=== PATIENT | female | born 1970 | race Caucasian/White ===

== ENCOUNTER 2018-09-04 17:56 | Emergency (ER) | payer MEDICAID ==
[~2018-09-04] VITALS: Ht 157.5 cm; Wt 82.3 kg
[~2018-09-04 17:56] MED LIST: HYDR-3240; UNK ABX
[2018-09-04 18:42] LABS: ALBUMIN 2.6 g/dL (3.4-5.0); ANION GAP 10 mmol/L (5-15); CALCIUM 8.2 mg/dL (8.5-10.1); CHLORIDE 112 mmol/L (98-107)
[2018-09-04 18:46] LABS: ALANINE AMINOTRANSFERASE 29 U/L (12-78); ALKALINE PHOSPHATASE 165 U/L (45-117); BILIRUBIN,TOTAL 9.6 mg/dL (0.2-1.0); CREATININE 0.69 mg/dL (0.55-1.02); TOTAL PROTEIN 6.8 g/dL (6.4-8.2)
[2018-09-04 19:01] LABS: MEAN CORPUSCULAR HGB CONC 34.4 g/dL (32.4-35.8); MEAN PLATELET VOLUME 8.5 fL (7.4-10.4); PLATELET COUNT 57 x10^3/uL (130-400); RED BLOOD COUNT 3.25 x10^6/uL (3.82-5.3); RED CELL DISTRIBUTION WIDTH 15.1 % (9.6-15.2)
[2018-09-04 19:21] LABS: MD YES
[2018-09-04 19:23] LABS: BAND#(MANUAL) 0.06 x10^3/uL; BANDS%(MANUAL) 1 % (0-7); BASOS#(MANUAL) 0.06 x10^3/uL (0-0.1); BASOS% (MANUAL) 1 % (0-1); EOS#(MANUAL) 0.24 x10^3/uL (0.0-0.4); EOS% (MANUAL) 4 % (1-7); LYMPH#(MANUAL) 1.34 x10^3/uL (1-3.4); LYMPHS% (MANUAL) 22 % (22-44); MONOS#(MANUAL) 0.79 x10^3/uL (0.3-2.7); MONOS% (MANUAL) 13 % (2-9); SEGS% (MANUAL) 59 % (42-75)
[2018-09-04 19:24] LABS: <PLATELET ESTIMATE> DECREASED; ANISOCYTOSIS 1+; ECHINOCYTES 1+; POLYCHROMASIA 1+; TEAR DROPS 1+
[2018-09-04 19:25] LABS: <PLT MORPHOLOGY> NORMAL PLT MORPH
[2018-09-04 20:18] VITALS: BP 120/79
== END 2018-09-04 20:31 | disposition home or self-care (01) ==
LOC: ED 20:25
DX: L03.115 Cellulitis of right lower limb (principal)
CPT/HCPCS: 36415; 80053; 85025; 99285

== ENCOUNTER 2018-11-25 01:00 | Emergency (ER) | payer SELFPAY ==
[~2018-11-25] VITALS: Ht 160 cm; Wt 80.0 kg
[2018-11-25] MEDS ORDERED: LOSA25TA12 PO (01:11)
--- NOTE | 2018-11-25 01:22 | NUR ---
RECEIVED REPORT FROM KYLE DEVI TO ASSUME PT. CARE AT THIS TIME.
[2018-11-25] MEDS ORDERED: KETOROLAC 30 MG/1 ML IM ONE (01:30)
--- NOTE | 2018-11-25 01:33 | NUR ---
PT. OUT OF ROOM FOR CT.
--- NOTE | 2018-11-25 01:38 | NUR ---
JIGMAN BED PLACED IN ROOM/CART IN ROOM READY FOR PELVIC EXAM WHEN PT. RETURNS TO ROOM.
[2018-11-25 01:44] LABS: ALANINE AMINOTRANSFERASE 43 U/L (12-78); ALBUMIN 2.8 g/dL (3.4-5.0); ANION GAP 11 mmol/L (5-15); CALCIUM 7.8 mg/dL (8.5-10.1); CHLORIDE 110 mmol/L (98-107); CREATININE 0.71 mg/dL (0.55-1.02)
[2018-11-25 01:47] LABS: ALKALINE PHOSPHATASE 188 U/L (45-117); BILIRUBIN,TOTAL 9.8 mg/dL (0.2-1.0); TOTAL PROTEIN 7.1 g/dL (6.4-8.2)
--- NOTE | 2018-11-25 01:51 | NUR ---
PT. BACK FROM US; URINE SAMPLE SENT TO LAB. DR. SARMIENTO IN TO EVAL PT. EUGENIA LOZANO AWARE PELVIC IS READY. PT. DENIES NEEDS. CALL LIGHT IN REACH.
[2018-11-25 01:53] LABS: BASOPHILS # (AUTO) 0.07 x10^3/uL (0-0.1); BASOPHILS % (AUTO) 1 % (0-1); EOSINOPHILS # (AUTO) 0.13 x10^3/uL (0-0.4); EOSINOPHILS % (AUTO) 2 % (1-7); LYMPHOCYTES # (AUTO) 1.36 x10^3/uL (1-3.4); LYMPHOCYTES % (AUTO) 24 % (22-44); MD MORPH REVIEW ONLY; MEAN CORPUSCULAR HEMOGLOBIN 35.5 pg (27.0-34.8); MEAN CORPUSCULAR HGB CONC 34.8 g/dL (32.4-35.8); MEAN PLATELET VOLUME 9.8 fL (7.4-10.4); MONOCYTES # (AUTO) 0.73 x10^3/uL (0.2-0.8); MONOCYTES % (AUTO) 13 % (2-9); NEUTROPHILS # (AUTO) 3.35 x10^3/uL (1.8-6.8); NEUTROPHILS % (AUTO) 59 % (42-75); PLATELET COUNT 50 x10^3/uL (130-400); RED BLOOD COUNT 3.27 x10^6/uL (3.82-5.3); RED CELL DISTRIBUTION WIDTH 15.8 % (9.6-15.2)
[2018-11-25 01:54] LABS: ANISOCYTOSIS 1+; ECHINOCYTES 1+; OVALOCYTES 1+; POLYCHROMASIA 1+
[2018-11-25 01:55] LABS: ACANTHOCYTES 1+
[2018-11-25 01:56] LABS: <PLATELET ESTIMATE> DECREASED; <PLT MORPHOLOGY> NORMAL PLT MORPH
[2018-11-25] MEDS ORDERED: POTASSIUM CHLORIDE 20 MEQ TAB.ER.PRT PO ONE (02:30)
[2018-11-25 02:36] LABS: CLUE CELLS NONE SEEN (NONE SEEN)
[2018-11-25 02:37] LABS: WET PREP WBCS FEW (FEW)
[2018-11-25] MEDS ORDERED: KETOROLAC 30 MG/1 ML ONE (02:37)
[2018-11-25] MEDS ORDERED: POTASSIUM CHLORIDE 20 MEQ TAB.ER.PRT ONE (02:37)
[2018-11-25 02:38] LABS: CULTURE INDICATED? YES; HCG UR SG 1.004 (1.003-1.030); MICROSCOPIC INDICATED
[2018-11-25 02:43] VITALS: BP 137/83
== END 2018-11-25 03:16 | disposition home or self-care (01) ==
LOC: ED 01:21
DX: D25.9 Leiomyoma of uterus, unspecified (principal); E87.6 Hypokalemia; K70.30 Alcoholic cirrhosis of liver without ascites; I10 Essential (primary) hypertension
CPT/HCPCS: 36415; 76830; 80053; 81001; 81025; 82248; 83690; 85025; 87086; 87210; 87491; 87591; 87808; 96372; 99284; J1885

== ENCOUNTER 2018-12-08 13:04 | Observation (INO) | payer MEDICAID, OTHER ==
[~2018-12-08] VITALS: Ht 160 cm; Wt 82.7 kg
[~2018-12-08 13:04] MED LIST changes: +LOSA25TA12 PO
[2018-12-08 13:58] LABS: INTERNATIONAL NORMALIZED RATIO 2.21 (0.93-1.1); PROTHROMBIN TIME 22.7 Seconds (9.6-11.5)
[2018-12-08 13:59] LABS: ALANINE AMINOTRANSFERASE 33 U/L (12-78); ALBUMIN 2.8 g/dL (3.4-5.0); ANION GAP 8 mmol/L (5-15); CALCIUM 8.6 mg/dL (8.5-10.1); CHLORIDE 107 mmol/L (98-107)
[2018-12-08 14:03] LABS: ALKALINE PHOSPHATASE 245 U/L (45-117); BILIRUBIN,TOTAL 10.7 mg/dL (0.2-1.0); TOTAL PROTEIN 7.3 g/dL (6.4-8.2); TROPONIN I < 0.015 ng/mL (0.000-0.045)
[2018-12-08 14:15] LABS: MEAN CORPUSCULAR HEMOGLOBIN 36.7 pg (27.0-34.8); MEAN CORPUSCULAR HGB CONC 34.8 g/dL (32.4-35.8); MEAN CORPUSCULAR VOLUME 105.4 fL (80-100); RED BLOOD COUNT 3.01 x10^6/uL (3.82-5.3); RED CELL DISTRIBUTION WIDTH 14.9 % (9.6-15.2)
[2018-12-08 14:16] LABS: PLATELET COUNT 31 x10^3/uL (130-400)
[2018-12-08 14:24] LABS: BASOPHILS # (AUTO) 0.05 x10^3/uL (0-0.1); BASOPHILS % (AUTO) 1 % (0-1); EOSINOPHILS # (AUTO) 0.03 x10^3/uL (0-0.4); EOSINOPHILS % (AUTO) 1 % (1-7); LYMPHOCYTES # (AUTO) 0.76 x10^3/uL (1-3.4); LYMPHOCYTES % (AUTO) 20 % (22-44); MD SCAN; MONOCYTES % (AUTO) 13 % (2-9); NEUTROPHILS # (AUTO) 2.58 x10^3/uL (1.8-6.8); NEUTROPHILS % (AUTO) 66 % (42-75)
--- NOTE | 2018-12-08 16:50 | NUR ---
PT TO ROOM FROM LOBBY. ALL TESTS ORDERED IN TRIAGE COMPLETED AND POSTED. DR HOWELL AT BEDSIDE.
[2018-12-08] MEDS ORDERED: OXYcodone/APAP 5/325MG TABLET PO ONE (17:00)
[2018-12-08] MEDS ORDERED: OXYcodone/APAP 5/325MG TABLET ONE (17:22)
--- NOTE | 2018-12-08 17:46 | NUR ---
LATE ENTRY 6, PT WITH C/O RIGHT WRIST PAIN, DENIES TRAUMA. PAIN 8/10, NO OBVIOUS DEFORMITY NOTED, DISTAL CSM+
--- NOTE | 2018-12-08 17:47 | NUR ---
PT RTD FROM US AND XRAY. MED FOR PAIN 06/13 NOTED.
--- NOTE | 2018-12-08 18:32 | NUR ---
PT AWARE THAT HEMATOLOGY MD HAS BEEN CALLED FOR CONSULT.
[2018-12-08] MEDS ORDERED: PHYTONADIONE 10 MG/ML, 1ML IM ONE (19:00)
--- NOTE | 2018-12-08 19:01 | NUR ---
DR HOWELL AT BEDSIDE. POC FOR VIT K, PLATELETS, AND ADMISSION DISCUSSED, QUESTIONS ANSWERED.
[2018-12-08] MEDS ORDERED: PHYTONADIONE 10 MG/ML, 1ML ONE (19:15)
[2018-12-08 19:52] VITALS: BP 120/66
[2018-12-08] MEDS ORDERED: OXYcodone IR 5MG TABLET PO PRN (20:00)
[2018-12-08] MEDS ORDERED: ONDANSETRON 2MG/ML, 2ML IVPush PRN (20:00)
[2018-12-08 20:09] VITALS: BP 110/50
[2018-12-08 20:35] VITALS: BP 119/63
--- NOTE | 2018-12-08 21:06 | NUR ---
ANGELICA RPT TO KYLE MARQUIS
--- NOTE | 2018-12-08 21:43 | NUR ---
SWITCHED PT TO HOSPITAL BED
--- NOTE | 2018-12-08 21:50 | NUR ---
REPORT GIVEN TO KYLE DAHL
[2018-12-08 22:41] VITALS: BP 127/75
[2018-12-09 00:21] VITALS: BP 113/72
[2018-12-09 08:45] VITALS: BP 119/71
[2018-12-09] MEDS ORDERED: LOSARTAN 25MG TABLET PO SCH (09:00)
[2018-12-09 09:34] LABS: INTERNATIONAL NORMALIZED RATIO 2.52 (0.93-1.1); PROTHROMBIN TIME 25.8 Seconds (9.6-11.5)
[2018-12-09 09:41] LABS: MEAN CORPUSCULAR HEMOGLOBIN 36.1 pg (27.0-34.8); MEAN CORPUSCULAR HGB CONC 33.7 g/dL (32.4-35.8); RED BLOOD COUNT 2.56 x10^6/uL (3.82-5.3); RED CELL DISTRIBUTION WIDTH 14.6 % (9.6-15.2)
[2018-12-09 10:06] LABS: BASOPHILS # (AUTO) 0.06 x10^3/uL (0-0.1); BASOPHILS % (AUTO) 1 % (0-1); EOSINOPHILS # (AUTO) 0.05 x10^3/uL (0-0.4); EOSINOPHILS % (AUTO) 1 % (1-7); LYMPHOCYTES # (AUTO) 0.82 x10^3/uL (1-3.4); LYMPHOCYTES % (AUTO) 19 % (22-44); MD SCAN; MEAN PLATELET VOLUME 9.3 fL (7.4-10.4); MONOCYTES # (AUTO) 0.58 x10^3/uL (0.2-0.8); MONOCYTES % (AUTO) 13 % (2-9); NEUTROPHILS # (AUTO) 2.93 x10^3/uL (1.8-6.8); NEUTROPHILS % (AUTO) 66 % (42-75)
[2018-12-09 10:09] LABS: PLATELET COUNT 22 x10^3/uL (130-400)
[2018-12-09] MEDS ORDERED: PHYT5TAB PO (11:41)
[2018-12-09] MEDS ORDERED: TRAM50TA2 PO (11:41)
== END 2018-12-09 13:44 | disposition home or self-care (01) ==
LOC: ED 16:45 → INTOOBSV 19:20 → EDIP 19:20 → 3NE 22:00
PROVIDERS: ADMIT Hospitalist; ATTEND Hospitalist
DX: S50.11XA Contusion of right forearm, initial encounter (principal); F10.21 Alcohol dependence, in remission; D63.8 Anemia in other chronic diseases classified elsewhere; D68.9 Coagulation defect, unspecified; D69.59 Other secondary thrombocytopenia; D75.89 Other specified diseases of blood and blood-forming organs; E03.9 Hypothyroidism, unspecified; E43 Unspecified severe protein-calorie malnutrition; I10 Essential (primary) hypertension; K70.40 Alcoholic hepatic failure without coma; K74.60 Unspecified cirrhosis of liver; Z83.3 Family history of diabetes mellitus; Z87.891 Personal history of nicotine dependence; X58.XXXA Exposure to other specified factors, initial encounter; Y93.89 Activity, other specified; Y92.89 Other specified places as the place of occurrence of the external cause; Y99.8 Other external cause status
CPT/HCPCS: 36415; 71046; 73090; 80053; 83690; 83880; 84484; 85025; 85610; 86850; 86900; 93005; 93971; 96372; 99284; G0378; J3430; P9035

== ENCOUNTER 2018-12-12 02:53 | Emergency (ER) | payer SELFPAY ==
[~2018-12-12] VITALS: Ht 160 cm; Wt 80.0 kg
[~2018-12-12 02:53] MED LIST changes: +PHYT5TAB PO; +TRAM50TA2 PO
--- NOTE | 2018-12-12 03:30 | NUR ---
PT HERE FOR BRUISING TO RIGHT ARM. PT SEEN ANTONIO RECENTLY FOR SAME. PT DENIES PAIN. VSS. CALL LIGHT N REACH
[2018-12-12 03:40] LABS: INTERNATIONAL NORMALIZED RATIO 1.89 (0.93-1.1); PROTHROMBIN TIME 19.5 Seconds (9.6-11.5)
[2018-12-12 03:42] LABS: ALANINE AMINOTRANSFERASE 33 U/L (12-78); ALBUMIN 2.8 g/dL (3.4-5.0); ANION GAP 11 mmol/L (5-15); CALCIUM 8.2 mg/dL (8.5-10.1); CHLORIDE 105 mmol/L (98-107); CREATININE 1.24 mg/dL (0.55-1.02)
[2018-12-12 03:45] LABS: ALKALINE PHOSPHATASE 186 U/L (45-117); BILIRUBIN,TOTAL 10.4 mg/dL (0.2-1.0); TOTAL PROTEIN 7.2 g/dL (6.4-8.2)
[2018-12-12] MEDS ORDERED: POTASSIUM CHLORIDE 20 MEQ TAB.ER.PRT ONE (04:10)
[2018-12-12 04:16] LABS: MEAN CORPUSCULAR HEMOGLOBIN 37.1 pg (27.0-34.8); MEAN CORPUSCULAR HGB CONC 34.7 g/dL (32.4-35.8); RED BLOOD COUNT 2.76 x10^6/uL (3.82-5.3); RED CELL DISTRIBUTION WIDTH 14.6 % (9.6-15.2)
--- NOTE | 2018-12-12 04:17 | NUR ---
PT MEDICATED WITH POTASSIUM. PT RESTING WITH NO NEEDS AT THIS TIME. CALL LIGHT IN REACH
[2018-12-12] MEDS ORDERED: POTASSIUM CHLORIDE 20 MEQ TAB.ER.PRT PO ONE (04:30)
[2018-12-12 04:40] LABS: BASOPHILS # (AUTO) 0.01 x10^3/uL (0-0.1); BASOPHILS % (AUTO) 0 % (0-1); EOSINOPHILS # (AUTO) 0.18 x10^3/uL (0-0.4); EOSINOPHILS % (AUTO) 2 % (1-7); LYMPHOCYTES # (AUTO) 2.11 x10^3/uL (1-3.4); LYMPHOCYTES % (AUTO) 28 % (22-44); MD SCAN; MEAN PLATELET VOLUME 8.4 fL (7.4-10.4); MONOCYTES # (AUTO) 0.87 x10^3/uL (0.2-0.8); MONOCYTES % (AUTO) 12 % (2-9); NEUTROPHILS # (AUTO) 4.29 x10^3/uL (1.8-6.8); NEUTROPHILS % (AUTO) 58 % (42-75); PLATELET COUNT 66 x10^3/uL (130-400)
--- NOTE | 2018-12-12 05:11 | NUR ---
PT RESTING WITH NO NEEDS AT THIS TIME. CALL LIGHT IN REACH
[2018-12-12 05:15] VITALS: BP 115/74
--- NOTE | 2018-12-12 05:57 | NUR ---
Patient given discharge instructions and they have confirmed that they understand the instructions. Patient ambulatory with steady gait.
== END 2018-12-12 05:59 | disposition home or self-care (01) ==
LOC: ED 03:32
DX: S50.11XA Contusion of right forearm, initial encounter (principal); K70.30 Alcoholic cirrhosis of liver without ascites; F10.120 Alcohol abuse with intoxication, uncomplicated; R58 Hemorrhage, not elsewhere classified; I10 Essential (primary) hypertension; X58.XXXA Exposure to other specified factors, initial encounter; Y93.89 Activity, other specified; Y92.89 Other specified places as the place of occurrence of the external cause; Y99.8 Other external cause status
CPT/HCPCS: 36415; 80053; 80307; 85025; 85610; 85730; 99283

== ENCOUNTER 2018-12-14 14:26 | Inpatient (IN) | payer OTHER ==
[~2018-12-14] VITALS: Ht 160 cm; Wt 82.6 kg
[2018-12-14] VITALS (11 sets, daily range): BP systolic 106–148; BP diastolic 63–84
[2018-12-14 15:20] LABS: ALANINE AMINOTRANSFERASE 31 U/L (12-78); ALBUMIN 2.6 g/dL (3.4-5.0); ANION GAP 8 mmol/L (5-15); CALCIUM 8.6 mg/dL (8.5-10.1); CHLORIDE 104 mmol/L (98-107); CREATININE 0.72 mg/dL (0.55-1.02)
[2018-12-14 15:22] LABS: ALKALINE PHOSPHATASE 255 U/L (45-117); BILIRUBIN,TOTAL 8.4 mg/dL (0.2-1.0); CREATINE KINASE, TOTAL 168 U/L (26-192); TOTAL PROTEIN 6.9 g/dL (6.4-8.2)
[2018-12-14] MEDS ORDERED: OMNIPAQUE 350 MG/ML, 100ML BOTTLE ONE (15:30)
[2018-12-14 15:32] LABS: BASOPHILS # (AUTO) 0.02 x10^3/uL (0-0.1); BASOPHILS % (AUTO) 0 % (0-1); EOSINOPHILS # (AUTO) 0.09 x10^3/uL (0-0.4); EOSINOPHILS % (AUTO) 2 % (1-7); LYMPHOCYTES # (AUTO) 1.24 x10^3/uL (1-3.4); LYMPHOCYTES % (AUTO) 25 % (22-44); MD SCAN; MEAN CORPUSCULAR HEMOGLOBIN 35.8 pg (27.0-34.8); MEAN CORPUSCULAR HGB CONC 33.7 g/dL (32.4-35.8); MEAN CORPUSCULAR VOLUME 106.2 fL (80-100); MEAN PLATELET VOLUME 8.3 fL (7.4-10.4); MONOCYTES # (AUTO) 0.85 x10^3/uL (0.2-0.8); MONOCYTES % (AUTO) 17 % (2-9); NEUTROPHILS # (AUTO) 2.82 x10^3/uL (1.8-6.8); NEUTROPHILS % (AUTO) 56 % (42-75); RED BLOOD COUNT 2.63 x10^6/uL (3.82-5.3)
[2018-12-14 15:34] LABS: PLATELET COUNT 46 x10^3/uL (130-400)
[2018-12-14 15:46] LABS: INTERNATIONAL NORMALIZED RATIO 1.98 (0.93-1.1); PROTHROMBIN TIME 20.4 Seconds (9.6-11.5)
[2018-12-14] MEDS ORDERED: DOCUSATE 100 MG CAPSULE PO PRN (18:00)
[2018-12-14] MEDS ORDERED: ACETAMINOPHEN 325 MG TABLET PO ONE (18:00)
[2018-12-14] MEDS ORDERED: BISACODYL 10 MG SUPP PR PRN (18:00)
[2018-12-14] MEDS ORDERED: ENALAPRILAT 1.25 MG/ML, 2ML IVPush PRN (18:00)
[2018-12-14] MEDS ORDERED: POLYETHYLENE GLYCOL 17 GM PACKET PO PRN (18:00)
[2018-12-14] MEDS ORDERED: DIPHENHYDRAMINE 12.5MG/5ML, 10ML UDC PO ONE (18:00)
[2018-12-14] MEDS ORDERED: ONDANSETRON 2MG/ML, 2ML IVPush PRN (18:00)
--- NOTE | 2018-12-14 18:07 | NUR ---
SBAR TO CANDACE VIA TELEPHONE
[2018-12-14] MEDS: SODIUM CHLORIDE FLUSH 10ML SYR IVF SCH (20:35)
[2018-12-15] VITALS (7 sets, daily range): BP systolic 117–146; BP diastolic 65–83
[2018-12-15 05:18] LABS: INTERNATIONAL NORMALIZED RATIO 1.66 (0.93-1.1); PROTHROMBIN TIME 17.3 Seconds (9.6-11.5)
[2018-12-15 05:25] LABS: ALBUMIN 2.6 g/dL (3.4-5.0); ANION GAP 8 mmol/L (5-15); CALCIUM 8.2 mg/dL (8.5-10.1); CHLORIDE 104 mmol/L (98-107); MEAN CORPUSCULAR HEMOGLOBIN 37.2 pg (27.0-34.8); MEAN CORPUSCULAR HGB CONC 35.4 g/dL (32.4-35.8); RED BLOOD COUNT 2.17 x10^6/uL (3.82-5.3); RED CELL DISTRIBUTION WIDTH 14.7 % (9.6-15.2)
[2018-12-15 05:28] LABS: ALANINE AMINOTRANSFERASE 29 U/L (12-78); ALKALINE PHOSPHATASE 214 U/L (45-117); BILIRUBIN,TOTAL 7.8 mg/dL (0.2-1.0); CREATININE 0.66 mg/dL (0.55-1.02); TOTAL PROTEIN 6.4 g/dL (6.4-8.2)
[2018-12-15 06:00] LABS: BASOPHILS # (AUTO) 0.04 x10^3/uL (0-0.1); BASOPHILS % (AUTO) 1 % (0-1); EOSINOPHILS # (AUTO) 0.06 x10^3/uL (0-0.4); EOSINOPHILS % (AUTO) 2 % (1-7); LYMPHOCYTES # (AUTO) 0.79 x10^3/uL (1-3.4); LYMPHOCYTES % (AUTO) 25 % (22-44); MD MORPH REVIEW ONLY; MEAN PLATELET VOLUME 7.9 fL (7.4-10.4); MONOCYTES # (AUTO) 0.51 x10^3/uL (0.2-0.8); MONOCYTES % (AUTO) 16 % (2-9); NEUTROPHILS # (AUTO) 1.76 x10^3/uL (1.8-6.8); NEUTROPHILS % (AUTO) 56 % (42-75)
[2018-12-15 06:01] LABS: PLATELET COUNT 30 x10^3/uL (130-400)
[2018-12-15 06:02] LABS: OVALOCYTES 1+
[2018-12-15 06:03] LABS: TEAR DROPS 1+
[2018-12-15 06:04] LABS: <PLATELET ESTIMATE> DECREASED; <PLT MORPHOLOGY> NORMAL PLT MORPH; SCHISTOCYTES 1+
[2018-12-15] MEDS: PHYTONADIONE 10 MG/ML, 1ML SQ SCH (09:23)
[2018-12-15] MEDS: SODIUM CHLORIDE FLUSH 10ML SYR IVF SCH ×2 (09:24→19:29)
[2018-12-15] MEDS ORDERED: GADOBUTROL 10 MMOL/10 ML PFS ONE (12:28)
[2018-12-15] MEDS: GABAPENTIN 300 MG CAPSULE PO PRN (13:30)
[2018-12-15] MEDS ORDERED: LORazepam 2 MG/ML, 1ML IV PRN ×5 (20:00)
[2018-12-15] MEDS ORDERED: LORazepam 1MG TABLET PO PRN ×4 (20:00)
[2018-12-15] MEDS: LORazepam 0.5MG TABLET PO PRN (20:41)
[2018-12-15] MEDS: DIPHENHYDRAMINE 25 MG CAPSULE PO PRN (21:53)
[2018-12-15] MEDS: OXYcodone IR 5MG TABLET PO PRN (21:53)
[2018-12-16] MEDS: LORazepam 0.5MG TABLET PO PRN (00:44)
[2018-12-16 02:20] VITALS: BP 142/72
[2018-12-16] MEDS: DIPHENHYDRAMINE 25 MG CAPSULE PO PRN (03:51)
[2018-12-16] MEDS: GABAPENTIN 300 MG CAPSULE PO PRN (03:51)
[2018-12-16] MEDS: OXYcodone IR 5MG TABLET PO PRN ×2 (03:52→10:16)
[2018-12-16 07:25] VITALS: BP 158/81
[2018-12-16 08:23] LABS: MEAN CORPUSCULAR HEMOGLOBIN 35.6 pg (27.0-34.8); MEAN CORPUSCULAR HGB CONC 33.8 g/dL (32.4-35.8); MEAN CORPUSCULAR VOLUME 105.3 fL (80-100); RED BLOOD COUNT 2.53 x10^6/uL (3.82-5.3); RED CELL DISTRIBUTION WIDTH 14.3 % (9.6-15.2)
[2018-12-16 08:32] LABS: ALANINE AMINOTRANSFERASE 29 U/L (12-78); ALBUMIN 2.6 g/dL (3.4-5.0); ANION GAP 9 mmol/L (5-15); CALCIUM 8.1 mg/dL (8.5-10.1); CHLORIDE 97 mmol/L (98-107); CREATININE 0.84 mg/dL (0.55-1.02)
[2018-12-16 08:35] LABS: ALKALINE PHOSPHATASE 162 U/L (45-117); BILIRUBIN,TOTAL 12.4 mg/dL (0.2-1.0); TOTAL PROTEIN 6.7 g/dL (6.4-8.2)
[2018-12-16] MEDS: PHYTONADIONE 10 MG/ML, 1ML SQ SCH (08:42)
[2018-12-16] MEDS: SODIUM CHLORIDE FLUSH 10ML SYR IVF SCH (08:43)
[2018-12-16] MEDS ORDERED: POTASSIUM CHLORIDE 20 MEQ TAB.ER.PRT PO ONE (09:00)
[2018-12-16 09:03] LABS: BASOPHILS # (AUTO) 0.02 x10^3/uL (0-0.1); BASOPHILS % (AUTO) 1 % (0-1); EOSINOPHILS # (AUTO) 0.12 x10^3/uL (0-0.4); EOSINOPHILS % (AUTO) 3 % (1-7); LYMPHOCYTES # (AUTO) 0.98 x10^3/uL (1-3.4); LYMPHOCYTES % (AUTO) 22 % (22-44); MD MORPH REVIEW ONLY; MONOCYTES % (AUTO) 16 % (2-9); NEUTROPHILS # (AUTO) 2.66 x10^3/uL (1.8-6.8); NEUTROPHILS % (AUTO) 59 % (42-75)
[2018-12-16 09:04] LABS: MEAN PLATELET VOLUME 7.5 fL (7.4-10.4); PLATELET COUNT 44 x10^3/uL (130-400)
[2018-12-16 09:05] LABS: OVALOCYTES 1+; SCHISTOCYTES 1+
[2018-12-16 09:06] LABS: <PLATELET ESTIMATE> DECREASED; <PLT MORPHOLOGY> NORMAL PLT MORPH; TEAR DROPS 1+
[2018-12-16] MEDS ORDERED: PHYT5TAB PO (13:17)
[2018-12-16] MEDS ORDERED: GABA300C10 PO (13:17)
[2018-12-16 13:38] VITALS: BP 122/76
== END 2018-12-16 14:37 | disposition home or self-care (01) | DRG 813 ==
LOC: ED 15:11 → EDIP 17:21 → 4NOR 18:37 → DCLOUNGE 12-16 14:29
PROVIDERS: ADMIT Internal Medicine; ATTEND Internal Medicine
PROC: 30233P1 Transfusion of Nonautologous Frozen Red Cells into Peripheral Vein, Percutaneous Approach (ICD-10-PCS; principal; 2018-12-14)
PROC: 30233R1 Transfusion of Nonautologous Platelets into Peripheral Vein, Percutaneous Approach (ICD-10-PCS; 2018-12-14)
DX: D68.9 Coagulation defect, unspecified (principal); E44.0 Moderate protein-calorie malnutrition; M79.81 Nontraumatic hematoma of soft tissue; S56.911A Strain of unspecified muscles, fascia and tendons at forearm level, right arm, initial encounter; K72.90 Hepatic failure, unspecified without coma; D53.9 Nutritional anemia, unspecified; D69.6 Thrombocytopenia, unspecified; E03.9 Hypothyroidism, unspecified; Z68.32 Body mass index [BMI] 32.0-32.9, adult; F10.10 Alcohol abuse, uncomplicated; Y90.9 Presence of alcohol in blood, level not specified; F17.210 Nicotine dependence, cigarettes, uncomplicated; I11.9 Hypertensive heart disease without heart failure; K70.30 Alcoholic cirrhosis of liver without ascites; R73.9 Hyperglycemia, unspecified; X58.XXXA Exposure to other specified factors, initial encounter; Y93.89 Activity, other specified; Z83.3 Family history of diabetes mellitus; Y92.89 Other specified places as the place of occurrence of the external cause; Y99.8 Other external cause status; Z71.41 Alcohol abuse counseling and surveillance of alcoholic
CPT/HCPCS: 36415; 80053; 82550; 83605; 85025; 85610; 86850; 86870; 86900; 86902; 86922; 86923; 99285; A9585; G0378; J3430; Q9967; P9017; P9035; Q0163

== ENCOUNTER 2018-12-20 14:20 | Observation (INO) | payer OTHER ==
[~2018-12-20] VITALS: Ht 160 cm; Wt 81.8 kg
[~2018-12-20 14:20] MED LIST changes: +GABA300C10 PO
[2018-12-20] MEDS ORDERED: HYDROmorphone 2 MG/ML, 1ML IVPush PRN (15:00)
[2018-12-20] MEDS ORDERED: SODIUM CHLORIDE FLUSH 10ML SYR IVF ONE (15:00)
[2018-12-20] MEDS ORDERED: HYDROmorphone 1 MG/ML, 1ML ONE (15:18)
[2018-12-20] MEDS ORDERED: PHYT5TAB2 PO (15:27)
[2018-12-20] MEDS ORDERED: LOSA25TA25 PO (15:28)
--- NOTE | 2018-12-20 15:31 | NUR ---
PIV STARTED AND BLOOD DRAWN. PATIENT MEDICATED AND RESTING WITH NO COMPLAINTS.
[2018-12-20 15:40] LABS: INTERNATIONAL NORMALIZED RATIO 1.91 (0.93-1.1); PROTHROMBIN TIME 19.7 Seconds (9.6-11.5)
[2018-12-20 15:41] LABS: ALANINE AMINOTRANSFERASE 31 U/L (12-78); ALBUMIN 2.9 g/dL (3.4-5.0); ANION GAP 11 mmol/L (5-15); CHLORIDE 107 mmol/L (98-107); CREATININE 0.86 mg/dL (0.55-1.02)
[2018-12-20 15:44] LABS: ALKALINE PHOSPHATASE 222 U/L (45-117); BILIRUBIN,TOTAL 10.6 mg/dL (0.2-1.0); TOTAL PROTEIN 7.1 g/dL (6.4-8.2)
[2018-12-20 15:56] LABS: MEAN CORPUSCULAR HEMOGLOBIN 36.7 pg (27.0-34.8); MEAN CORPUSCULAR VOLUME 105.1 fL (80-100); MEAN PLATELET VOLUME 7.5 fL (7.4-10.4); RED BLOOD COUNT 2.42 x10^6/uL (3.82-5.3); RED CELL DISTRIBUTION WIDTH 15.2 % (9.6-15.2)
[2018-12-20 16:11] LABS: MD YES; PLATELET COUNT 49 x10^3/uL (130-400)
[2018-12-20 16:15] LABS: BAND#(MANUAL) 0.26 x10^3/uL; BANDS%(MANUAL) 4 % (0-7); BASOS#(MANUAL) 0.13 x10^3/uL (0-0.1); BASOS% (MANUAL) 2 % (0-1); EOS#(MANUAL) 0.07 x10^3/uL (0.0-0.4); EOS% (MANUAL) 1 % (1-7); LYMPH#(MANUAL) 1.39 x10^3/uL (1-3.4); LYMPHS% (MANUAL) 21 % (22-44); MONOS#(MANUAL) 0.59 x10^3/uL (0.3-2.7); MONOS% (MANUAL) 9 % (2-9); MYELOCYTES# (MANUAL) 0.07 x10^3/uL (0-0); MYELOCYTES% (MANUAL) 1 % (0-0); SEG#(MANUAL) 4.09 x10^3/uL (1.8-6.8); SEGS% (MANUAL) 62 % (42-75)
[2018-12-20 16:16] LABS: ANISOCYTOSIS 1+; POLYCHROMASIA 1+
[2018-12-20 16:17] LABS: ECHINOCYTES 1+; OVALOCYTES 1+; SCHISTOCYTES 1+
[2018-12-20 16:18] LABS: <PLATELET ESTIMATE> DECREASED; <PLT MORPHOLOGY> NORMAL PLT MORPH
[2018-12-20] MEDS ORDERED: POTASSIUM CHLORIDE 20 MEQ TAB.ER.PRT ONE (16:30)
[2018-12-20] MEDS ORDERED: POTASSIUM CHLORIDE 20 MEQ TAB.ER.PRT PO ONE (16:30)
--- NOTE | 2018-12-20 16:45 | NUR ---
POTASSIUM SUPPLEMENTS GIVEN. VS UPDATED AND WNL. PT RESTING WITH NO COMPLAINTS.
[2018-12-20] MEDS ORDERED: ACETAMINOPHEN 325 MG TABLET PO PRN (17:30)
[2018-12-20] MEDS ORDERED: DOCUSATE 100 MG CAPSULE PO PRN (17:30)
[2018-12-20] MEDS ORDERED: ONDANSETRON 2MG/ML, 2ML IVPush PRN (17:30)
[2018-12-20] MEDS ORDERED: POLYETHYLENE GLYCOL 17 GM PACKET PO PRN (17:30)
[2018-12-20] MEDS ORDERED: BISACODYL 10 MG SUPP PR PRN (17:30)
--- NOTE | 2018-12-20 17:48 | NUR ---
TELEPHONE SBAR HAND-OFF REPORT GIVEN TO KYLE DELGADO. PT READY TO GO TO HOSPITAL ROOM.
[2018-12-20 20:06] VITALS: BP 130/73
[2018-12-20] MEDS: GABAPENTIN 300 MG CAPSULE PO PRN (21:08)
[2018-12-20] MEDS: SODIUM CHLORIDE FLUSH 10ML SYR IVF SCH (21:12)
[2018-12-20 21:25] VITALS: BP 125/73
[2018-12-21 01:13] VITALS: BP 131/69
[2018-12-21] MEDS: HYDROmorphone 2 MG/ML, 1ML IV PRN ×2 (03:45→08:41)
[2018-12-21 05:02] LABS: MEAN CORPUSCULAR HEMOGLOBIN 35.9 pg (27.0-34.8); MEAN CORPUSCULAR HGB CONC 33.9 g/dL (32.4-35.8); MEAN PLATELET VOLUME 7.1 fL (7.4-10.4); RED BLOOD COUNT 2.15 x10^6/uL (3.82-5.3); RED CELL DISTRIBUTION WIDTH 15.3 % (9.6-15.2)
[2018-12-21 05:05] LABS: PLATELET COUNT 49 x10^3/uL (130-400)
[2018-12-21 05:08] LABS: CALCIUM 7.9 mg/dL (8.5-10.1); CHLORIDE 108 mmol/L (98-107)
[2018-12-21 05:14] LABS: ALANINE AMINOTRANSFERASE 29 U/L (12-78); ALBUMIN 2.4 g/dL (3.4-5.0); ALKALINE PHOSPHATASE 173 U/L (45-117); ANION GAP 8 mmol/L (5-15); CREATININE 0.75 mg/dL (0.55-1.02); TOTAL PROTEIN 6.4 g/dL (6.4-8.2)
[2018-12-21 05:56] LABS: BASOPHILS # (AUTO) 0.02 x10^3/uL (0-0.1); BASOPHILS % (AUTO) 0 % (0-1); EOSINOPHILS # (AUTO) 0.16 x10^3/uL (0-0.4); EOSINOPHILS % (AUTO) 3 % (1-7); LYMPHOCYTES # (AUTO) 1.51 x10^3/uL (1-3.4); LYMPHOCYTES % (AUTO) 24 % (22-44); MD SCAN; MONOCYTES # (AUTO) 0.85 x10^3/uL (0.2-0.8); MONOCYTES % (AUTO) 13 % (2-9); NEUTROPHILS # (AUTO) 3.88 x10^3/uL (1.8-6.8); NEUTROPHILS % (AUTO) 60 % (42-75)
[2018-12-21 06:59] VITALS: BP 131/70
[2018-12-21 07:33] LABS: INTERNATIONAL NORMALIZED RATIO 1.96 (0.93-1.1); PROTHROMBIN TIME 20.2 Seconds (9.6-11.5)
[2018-12-21] MEDS: PHYTONADIONE 10 MG/ML, 1ML SQ SCH (08:36)
[2018-12-21] MEDS: POTASSIUM CHLORIDE 20 MEQ TAB.ER.PRT PO SCH ×2 (08:36→17:07)
[2018-12-21] MEDS: LOSARTAN 25MG TABLET PO SCH (08:36)
[2018-12-21] MEDS: SODIUM CHLORIDE FLUSH 10ML SYR IVF SCH ×2 (08:37→20:25)
[2018-12-21 12:49] VITALS: BP 96/57
[2018-12-21] MEDS: GABAPENTIN 300 MG CAPSULE PO PRN ×2 (14:13→20:13)
[2018-12-21] MEDS: NICOTINE 7 MG/24 HR PATCH.TD24 TD SCH (17:07)
[2018-12-21 20:15] VITALS: BP 93/45
[2018-12-21] MEDS: OXYcodone IR 5MG TABLET PO PRN (23:58)
[2018-12-21] MEDS: DIPHENHYDRAMINE 25 MG CAPSULE PO PRN (23:58)
[2018-12-22 00:28] VITALS: BP 116/60
[2018-12-22] MEDS: OXYcodone IR 5MG TABLET PO PRN ×4 (06:24→18:59)
[2018-12-22 07:47] VITALS: BP 116/59
[2018-12-22 08:30] VITALS: BP 123/68
[2018-12-22 08:35] LABS: MEAN CORPUSCULAR HGB CONC 34.3 g/dL (32.4-35.8); MEAN CORPUSCULAR VOLUME 104.8 fL (80-100); MEAN PLATELET VOLUME 7.4 fL (7.4-10.4); RED BLOOD COUNT 2.33 x10^6/uL (3.82-5.3); RED CELL DISTRIBUTION WIDTH 15.3 % (9.6-15.2)
[2018-12-22 08:36] LABS: PLATELET COUNT 46 x10^3/uL (130-400)
[2018-12-22 08:40] LABS: BASOPHILS # (AUTO) 0.06 x10^3/uL (0-0.1); BASOPHILS % (AUTO) 1 % (0-1); EOSINOPHILS % (AUTO) 1 % (1-7); LYMPHOCYTES # (AUTO) 1.02 x10^3/uL (1-3.4); LYMPHOCYTES % (AUTO) 15 % (22-44); MD SCAN; MONOCYTES # (AUTO) 0.93 x10^3/uL (0.2-0.8); MONOCYTES % (AUTO) 13 % (2-9); NEUTROPHILS # (AUTO) 4.95 x10^3/uL (1.8-6.8); NEUTROPHILS % (AUTO) 70 % (42-75)
[2018-12-22] MEDS: POTASSIUM CHLORIDE 20 MEQ TAB.ER.PRT PO SCH ×2 (08:55→16:50)
[2018-12-22] MEDS: GABAPENTIN 300 MG CAPSULE PO PRN (08:55)
[2018-12-22] MEDS: LOSARTAN 25MG TABLET PO SCH (08:56)
[2018-12-22] MEDS: SODIUM CHLORIDE FLUSH 10ML SYR IVF SCH (08:56)
[2018-12-22] MEDS: PHYTONADIONE 10 MG/ML, 1ML SQ SCH (08:58)
[2018-12-22] MEDS ORDERED: MULTIVITAMIN 1 TABLET PO SCH (09:00)
[2018-12-22] MEDS ORDERED: THIAMINE 100MG TABLET PO SCH (09:00)
[2018-12-22] MEDS ORDERED: FOLIC ACID 1 MG TABLET PO SCH (09:00)
[2018-12-22] MEDS: DIPHENHYDRAMINE 25 MG CAPSULE PO PRN (13:12)
[2018-12-22 15:32] VITALS: BP 118/61
[2018-12-22 16:02] LABS: TROPONIN I 0.064 ng/mL (0.000-0.045)
[2018-12-22] MEDS: NICOTINE 7 MG/24 HR PATCH.TD24 TD SCH (16:51)
[2018-12-22] MEDS ORDERED: MULT1TAB60 PO (17:29)
[2018-12-22] MEDS ORDERED: GABA300C10 PO (17:29)
[2018-12-22] MEDS ORDERED: THIA100T67 PO (17:29)
== END 2018-12-22 18:55 | disposition home or self-care (01) ==
LOC: ED 14:44 → EDIP 16:11 → INTOOBSV 16:11 → 3NE 18:16
PROVIDERS: ADMIT Internal Medicine; ATTEND Internal Medicine
DX: S50.11XA Contusion of right forearm, initial encounter (principal); D53.9 Nutritional anemia, unspecified; D68.9 Coagulation defect, unspecified; D69.6 Thrombocytopenia, unspecified; E03.9 Hypothyroidism, unspecified; E44.0 Moderate protein-calorie malnutrition; E87.6 Hypokalemia; F10.10 Alcohol abuse, uncomplicated; F17.200 Nicotine dependence, unspecified, uncomplicated; I11.9 Hypertensive heart disease without heart failure; K70.30 Alcoholic cirrhosis of liver without ascites; W19.XXXA Unspecified fall, initial encounter; X58.XXXA Exposure to other specified factors, initial encounter; Y93.89 Activity, other specified; Y92.89 Other specified places as the place of occurrence of the external cause; Y99.8 Other external cause status; Z83.3 Family history of diabetes mellitus
CPT/HCPCS: 36415; 80053; 82550; 83605; 84484; 85014; 85018; 85025; 85610; 85730; 86850; 86870; 86900; 86902; 86922; 93005; 96372; 96374; 96375; 96376; 99284; G0378; J1170; J2405; J3430; Q0163; 86923

== ENCOUNTER 2019-01-05 17:03 | Inpatient (IN) | payer MEDICAID ==
[~2019-01-05] VITALS: Ht 160 cm; Wt 83.3 kg
[~2019-01-05 17:03] MED LIST changes: +LOSA25TA25 PO; +MULT1TAB60 PO; +PHYT5TAB2 PO; +THIA100T67 PO
--- NOTE | 2019-01-05 17:05 | NUR ---
HARDIK HINSON, PT FOUND "UNRESPONSIVE IN [place] HOT TUB, CYANOTIC WITH JUST MOUTH ABOVE WATER," REPORTED THAT PT WAS PULLED FROM HOT TUB BY SECURITY WHO THEN STARTED CPR AND PT ABRUPTLY RESPONDED AND WAS ANSWERING QUESTIONS APPROPRIATELY PER EMS. PER EMS "GSC 15 ON ARRIVAL, BS 123, IV STARTED 20G RAC, 4MG ZOFRAN ADMINISTERED." PT STATES "DRANK 7 VODKA, STAYING AT HOTEL WITH MY , I HAVE HAND PAIN AND I'M FINE." DENIES INJURY OR TRAUMA. CMS INTACT, SCANT SWELLING NOTED. RADIAL PULSE NORMAL AND STRONG. A&OX4. CONT PULSE OX, BP, CARDIAC MONITORS APPLIED. ST ON MONITOR. VSS. RABIA PA AT BEDSIDE FOR EVALUATION. CALL LIGHT IN REACH. FALL PRECUATIONS IN PLACE. SIDE RAILS UPX2. +ETOH ODOR. UNKNOWN DURATION OF LOC OR IF PT HIT HEAD, NO WOUNDS OR SWELLING NOTED TO FACE/HEAD. PT STATES "I WAS JUST HAVING SOME DRINKS ENJOYING THE HOT TUB THEN I WOKE UP TO THEM PUSHING ON MY CHEST AND NOW I'M HERE AT [facility]."
--- NOTE | 2019-01-05 17:25 | NUR ---
PT IN RAD
--- NOTE | 2019-01-05 17:35 | NUR ---
PT BACK FROM RAD, NAD NOTED.
--- NOTE | 2019-01-05 17:49 | NUR ---
BEDSIDE REPORT AND CARE TO BRENNA WRIGHT AT THIS TIME
[2019-01-05 18:08] LABS: MEAN CORPUSCULAR HEMOGLOBIN 37.3 pg (27.0-34.8); MEAN CORPUSCULAR HGB CONC 35.1 g/dL (32.4-35.8); MEAN CORPUSCULAR VOLUME 106.3 fL (80-100); RED BLOOD COUNT 2.61 x10^6/uL (3.82-5.3); RED CELL DISTRIBUTION WIDTH 16.4 % (9.6-15.2)
[2019-01-05 18:09] LABS: ALBUMIN 2.9 g/dL (3.4-5.0); ANION GAP 10 mmol/L (5-15); CALCIUM 8.2 mg/dL (8.5-10.1); CHLORIDE 110 mmol/L (98-107)
[2019-01-05 18:15] LABS: ALANINE AMINOTRANSFERASE 40 U/L (12-78); ALKALINE PHOSPHATASE 228 U/L (45-117); BILIRUBIN,TOTAL 13.1 mg/dL (0.2-1.0); CREATININE 0.76 mg/dL (0.55-1.02); TOTAL PROTEIN 7.4 g/dL (6.4-8.2)
[2019-01-05 18:18] LABS: TROPONIN I 0.166 ng/mL (0.000-0.045)
--- NOTE | 2019-01-05 18:32 | NUR ---
PT SLEEPING IN GURNEY, AWAKENS EASILY, OX4. RV'WD POC WITH PT, SHE VERBALIZES UNDERSTANDING. WARM BLANKETS PROVIDED.
[2019-01-05 18:40] LABS: BASOPHILS # (AUTO) 0.02 x10^3/uL (0-0.1); BASOPHILS % (AUTO) 0 % (0-1); EOSINOPHILS # (AUTO) 0.19 x10^3/uL (0-0.4); EOSINOPHILS % (AUTO) 2 % (1-7); LYMPHOCYTES # (AUTO) 0.66 x10^3/uL (1-3.4); LYMPHOCYTES % (AUTO) 7 % (22-44); MD SCAN; MONOCYTES # (AUTO) 0.44 x10^3/uL (0.2-0.8); MONOCYTES % (AUTO) 5 % (2-9); NEUTROPHILS # (AUTO) 8.35 x10^3/uL (1.8-6.8); NEUTROPHILS % (AUTO) 87 % (42-75)
[2019-01-05 18:43] LABS: PLATELET COUNT 41 x10^3/uL (130-400)
--- NOTE | 2019-01-05 18:43 | NUR ---
PLATLETS ARE 41
[2019-01-05 18:44] LABS: MEAN PLATELET VOLUME 7.9 fL (7.4-10.4)
[2019-01-05] MEDS ORDERED: POTASSIUM CHLORIDE 20 MEQ, MAGNESIUM SULFATE 1 GM, MVI ADULT 10 ML, THIAMINE 200 MG, FO... IV ONE (20:00)
[2019-01-05] MEDS ORDERED: POTASSIUM CHLORIDE 20 MEQ, MAGNESIUM SULFATE 2 GM, THIAMINE 200 MG, MVI ADULT 10 ML, FO... IV SCH (21:02)
[2019-01-05] MEDS ORDERED: LORazepam 1MG TABLET PO PRN ×3 (21:30)
[2019-01-05] MEDS ORDERED: BISACODYL 10 MG SUPP PR PRN (21:30)
[2019-01-05] MEDS ORDERED: PROMETHAZINE 25 MG/ML, 1ML IM PRN (21:30)
[2019-01-05] MEDS ORDERED: ONDANSETRON 2MG/ML, 2ML IVPush PRN (21:30)
[2019-01-05] MEDS ORDERED: morphine SULFATE 10 MG/ML, 1ML IVPush PRN (21:30)
[2019-01-05] MEDS ORDERED: POLYETHYLENE GLYCOL 17 GM PACKET PO PRN (21:30)
[2019-01-05] MEDS ORDERED: ONDANSETRON ODT 4 MG PO PRN (21:30)
[2019-01-05] MEDS ORDERED: OXYcodone IR 5MG TABLET PO PRN (21:30)
[2019-01-05] MEDS ORDERED: ENALAPRILAT 1.25 MG/ML, 2ML IVPush PRN (21:30)
[2019-01-05] MEDS ORDERED: LORazepam 2 MG/ML, 1ML IV PRN ×4 (21:30)
[2019-01-05 21:34] LABS: FREE T4 (FREE THYROXINE) 1.15 ng/dL (0.76-1.46); THYROID STIMULATING HORMONE 5.44 mIU/L (0.358-3.740)
--- NOTE | 2019-01-05 22:09 | NUR ---
PT WAS UP TO BR, WITH ONE PERSON ASSIST. HAD LARGE BM. ASSISTED WITH HYGIENE. NEW GOWN AND SHEETS PROVIDED. TAKEN TO CT VIA RNEY AT THIS TIME.
--- NOTE | 2019-01-06 00:12 | NUR ---
PT REPORT FROM BRENNA WRIGHT. THIS RN TO ASSUME CARE OF PT. PT TX TO ROOM 14. NO IMMEDIATE CONCERNS AT THIS TIME. THIS RN TO REQUEST NEW IV DRIP ORDERED FROM HOSPITALIST.
--- NOTE | 2019-01-06 00:24 | NUR ---
PT MOVED TO ED 14, REPORTED TO NAVARRO WRIGHT.
[2019-01-06 00:36] LABS: TROPONIN I 0.135 ng/mL (0.000-0.045)
--- NOTE | 2019-01-06 00:38 | NUR ---
PT GIVEN WATER PER REQUEST. BLANKETS PROVIDED FOR COMFORT AND LIGHTS OFF. NO OTHER NEEDS AT THIS TIME. VSS. IV INFUSION APPROPRIATE. CALL LIGHT WITHIN REACH.
--- NOTE | 2019-01-06 01:56 | NUR ---
PT SLEEPING COMFORTABLY ON GURNEY. RR EVEN AND UNLABORED. NADN.
--- NOTE | 2019-01-06 02:17 | NUR ---
PT YELLING INTO HALLWAY AND STATES HER HEAD IS HURTING AND APPEARS AGITATED. PAKO VILLALOBOS AND PT PAKO UP. THIS RN TO GIVE IM ATIVAN PER JAN.
[2019-01-06] MEDS ORDERED: LORazepam 2 MG/ML, 1ML ONE (02:18)
[2019-01-06] MEDS: LORazepam 2 MG/ML, 1ML IV PRN ×3 (02:21→14:56)
--- NOTE | 2019-01-06 02:46 | NUR ---
PT C/O INCREASED ABD PAIN AND BP LOW W/ TACHYCARDIA PRESENT. PT APPEARS MORE PALE THAN INITIAL ASSESSMENT FROM THIS RN. THIS RN TO TALK TO HOSPITALIST.
--- NOTE | 2019-01-06 02:59 | NUR ---
THIS RN TALKED TO DR KAT AND STATES TO ORDER NEW H+H FOR PT.
--- NOTE | 2019-01-06 04:10 | NUR ---
H+H CHANGE BROUGHT TO ATTENTION OF HOSPITALIST. HOSPITALIST ORDER ANOTHER H+H 4 HOURS FROM LAST ONE FOR TRENDING.
--- NOTE | 2019-01-06 04:14 | NUR ---
PT STILL APPEARS PALE, NO LONGER STATES ABD PAIN AT THIS TIME. STATES DE LA GARZA STILL THERE. VS MORE STABLE.
--- NOTE | 2019-01-06 04:43 | NUR ---
PT TO HOSPITAL BED AT THIS TIME.
--- NOTE | 2019-01-06 05:03 | NUR ---
PT BP STILL CONTINUES TO TREND DOWN. HOSPITALIST AWARE. STATES "ITS A CHRONIC CONDITION. LETS SEE WHAT THE H+H SAYS."
[2019-01-06 05:36] LABS: ALBUMIN 2.3 g/dL (3.4-5.0); ANION GAP 11 mmol/L (5-15); CALCIUM 7.5 mg/dL (8.5-10.1); CHLORIDE 106 mmol/L (98-107)
[2019-01-06 05:37] LABS: MEAN CORPUSCULAR HEMOGLOBIN 36.3 pg (27.0-34.8); MEAN CORPUSCULAR HGB CONC 33.6 g/dL (32.4-35.8); MEAN CORPUSCULAR VOLUME 107.8 fL (80-100); RED BLOOD COUNT 2.12 x10^6/uL (3.82-5.3); RED CELL DISTRIBUTION WIDTH 16.2 % (9.6-15.2)
[2019-01-06 05:42] LABS: ALANINE AMINOTRANSFERASE 35 U/L (12-78); ALKALINE PHOSPHATASE 151 U/L (45-117); CHOL/HDL RATIO 2.2; CHOLESTEROL, TOTAL 167 mg/dL (140-239); CREATININE 0.81 mg/dL (0.55-1.02); HDL CHOL % 45 % (28-40); HDL CHOLESTEROL (DIRECT) 75 mg/dL (40-60); TOTAL PROTEIN 6.2 g/dL (6.4-8.2); TROPONIN I 0.121 ng/mL (0.000-0.045)
[2019-01-06 05:45] LABS: MEAN PLATELET VOLUME 7.2 fL (7.4-10.4); PLATELET COUNT 35 x10^3/uL (130-400)
[2019-01-06 05:49] LABS: LDL CHOLESTEROL,CALCULATED 69 mg/dL (54-169); LDL/HDL RATIO 0.9 (0.5-3.0); TRIGLYCERIDES 114 mg/dL (50-200); VLDL CHOLESTEROL 23 mg/dL (0-25)
[2019-01-06 05:50] LABS: INTERNATIONAL NORMALIZED RATIO 2.05 (0.93-1.1); PROTHROMBIN TIME 20.9 Seconds (9.6-11.5)
[2019-01-06] MEDS ORDERED: SODIUM CHLORIDE 0.9% 1,000 ML IVBOLUS PRN (05:50)
--- NOTE | 2019-01-06 05:59 | NUR ---
THIS RN INITIATED RAPID RESPONSE AT THIS TIME. PT REMAINS BELOW MAP OF 65 AND PALE W/ TACHYCARDIA. HOSPITALIST CONTACTED MULTIPLE TIMES W/ NO NEW ORDERS, EXCLUDING AN H+H TREND. RAPID CALLED, 2ND IV PLACED AND 1L BOLUS INITIATED PER PROTOCOL. PT REMAINS A+Ox4, BUT LABS ARE TRENDING DOWN AND MULTIPLE NEW CRITICALS.
[2019-01-06 06:05] LABS: MD YES
[2019-01-06 06:08] LABS: ANISOCYTOSIS 1+; BAND#(MANUAL) 0.59 x10^3/uL; BANDS%(MANUAL) 6 % (0-7); BASOS% (MANUAL) 1 % (0-1); LYMPH#(MANUAL) 0.69 x10^3/uL (1-3.4); LYMPHS% (MANUAL) 7 % (22-44); MONOS% (MANUAL) 1 % (2-9); NRBC % (MANUAL) 1 % (0-1); POLYCHROMASIA 1+; SEG#(MANUAL) 8.42 x10^3/uL (1.8-6.8); SEGS% (MANUAL) 85 % (42-75)
[2019-01-06 06:09] LABS: <PLATELET ESTIMATE> DECREASED; <PLT MORPHOLOGY> NORMAL PLT MORPH
--- NOTE | 2019-01-06 06:31 | NUR ---
ATTEMPTED TO REPORT CRITICALS TO HOSPITALIST. LEFT VOICEMAIL ON HOSPITALIST PHONE.
--- NOTE | 2019-01-06 07:04 | NUR ---
Report from KYLE Richards.
--- NOTE | 2019-01-06 07:18 | NUR ---
PT sleep in abdulkadir. NAD noted at this time. Breathing regular and unlabored.
--- NOTE | 2019-01-06 07:57 | NUR ---
HOSPITALIST CALLED REGARDING MOST RECENTS LABS. NO NEW ORDERS AT THIS TIME. HOSPITALIST TO SEE PT.
--- NOTE | 2019-01-06 08:43 | NUR ---
Report to KYLE Baldwin.
[2019-01-06] MEDS ORDERED: LOSARTAN 25MG TABLET PO SCH (09:00)
[2019-01-06 10:10] VITALS: BP 99/58
[2019-01-06 10:17] VITALS: BP 96/56
[2019-01-06] MEDS: LACTULOSE 10 GM/15 ML UDC PO SCH ×2 (10:20→20:54)
[2019-01-06 13:19] VITALS: BP 102/64
[2019-01-06] MEDS: POTASSIUM CHLORIDE 20 MEQ, MAGNESIUM SULFATE 2 GM, THIAMINE 200 MG, MVI ADULT 10 ML, FO... IV SCH (18:25)
[2019-01-06 21:14] VITALS: BP 122/78
[2019-01-06] MEDS: LORazepam 1MG TABLET PO PRN (22:25)
[2019-01-07 02:02] VITALS: BP 126/79
[2019-01-07 05:46] LABS: CHLORIDE 107 mmol/L (98-107)
[2019-01-07 05:48] LABS: MEAN CORPUSCULAR HEMOGLOBIN 37.3 pg (27.0-34.8); MEAN CORPUSCULAR HGB CONC 34.8 g/dL (32.4-35.8); MEAN CORPUSCULAR VOLUME 107.2 fL (80-100); RED BLOOD COUNT 1.92 x10^6/uL (3.82-5.3)
[2019-01-07 05:59] LABS: ALANINE AMINOTRANSFERASE 28 U/L (12-78); ALBUMIN 2.2 g/dL (3.4-5.0); ALKALINE PHOSPHATASE 124 U/L (45-117); ANION GAP 7 mmol/L (5-15); BILIRUBIN,TOTAL 10.1 mg/dL (0.2-1.0); CALCIUM 7.2 mg/dL (8.5-10.1); CREATININE 0.75 mg/dL (0.55-1.02); TOTAL PROTEIN 5.7 g/dL (6.4-8.2)
[2019-01-07 06:01] LABS: BASOPHILS # (AUTO) 0.03 x10^3/uL (0-0.1); BASOPHILS % (AUTO) 1 % (0-1); EOSINOPHILS # (AUTO) 0.15 x10^3/uL (0-0.4); EOSINOPHILS % (AUTO) 3 % (1-7); LYMPHOCYTES # (AUTO) 0.83 x10^3/uL (1-3.4); LYMPHOCYTES % (AUTO) 17 % (22-44); MD SCAN; MONOCYTES # (AUTO) 0.68 x10^3/uL (0.2-0.8); MONOCYTES % (AUTO) 14 % (2-9); NEUTROPHILS # (AUTO) 3.22 x10^3/uL (1.8-6.8); NEUTROPHILS % (AUTO) 66 % (42-75)
[2019-01-07] MEDS: LORazepam 2 MG/ML, 1ML IV PRN (06:09)
[2019-01-07 06:15] LABS: MEAN PLATELET VOLUME 8.4 fL (7.4-10.4)
[2019-01-07 06:23] LABS: PLATELET COUNT 27 x10^3/uL (130-400)
[2019-01-07 07:30] VITALS: BP 112/69
[2019-01-07] MEDS ORDERED: REGADENOSON 0.4 MG/5 ML SYRINGE ONE (08:27)
[2019-01-07] MEDS: LACTULOSE 10 GM/15 ML UDC PO SCH ×2 (08:31→21:00)
[2019-01-07] MEDS: LORazepam 1MG TABLET PO PRN (11:19)
[2019-01-07 13:29] LABS: CULTURE INDICATED? YES; MICROSCOPIC INDICATED
[2019-01-07 13:55] VITALS: BP 112/70
[2019-01-07] MEDS: LORazepam 0.5MG TABLET PO PRN ×2 (16:03→20:34)
[2019-01-07] MEDS: POTASSIUM CHLORIDE 20 MEQ, MAGNESIUM SULFATE 2 GM, THIAMINE 200 MG, MVI ADULT 10 ML, FO... IV SCH (17:00)
[2019-01-07 18:30] VITALS: BP 114/73
[2019-01-07] MEDS: GABAPENTIN 300 MG CAPSULE PO PRN (20:34)
[2019-01-08 02:23] VITALS: BP 113/70
[2019-01-08 06:10] LABS: ALBUMIN 2.3 g/dL (3.4-5.0); ANION GAP 10 mmol/L (5-15); CALCIUM 7.5 mg/dL (8.5-10.1); CHLORIDE 112 mmol/L (98-107)
[2019-01-08 06:15] LABS: ALANINE AMINOTRANSFERASE 31 U/L (12-78); ALKALINE PHOSPHATASE 132 U/L (45-117); BILIRUBIN,TOTAL 8.9 mg/dL (0.2-1.0); CREATININE 0.85 mg/dL (0.55-1.02); TOTAL PROTEIN 5.8 g/dL (6.4-8.2)
[2019-01-08 06:25] LABS: MEAN CORPUSCULAR HEMOGLOBIN 38.1 pg (27.0-34.8); MEAN CORPUSCULAR VOLUME 109.1 fL (80-100); MEAN PLATELET VOLUME 8.1 fL (7.4-10.4); RED BLOOD COUNT 1.95 x10^6/uL (3.82-5.3); RED CELL DISTRIBUTION WIDTH 16.1 % (9.6-15.2)
[2019-01-08 06:28] LABS: PLATELET COUNT 39 x10^3/uL (130-400)
[2019-01-08 06:29] LABS: MD YES
[2019-01-08 06:32] LABS: BAND#(MANUAL) 0.21 x10^3/uL; BANDS%(MANUAL) 3 % (0-7); BASOS#(MANUAL) 0.07 x10^3/uL (0-0.1); BASOS% (MANUAL) 1 % (0-1); EOS#(MANUAL) 0.55 x10^3/uL (0.0-0.4); EOS% (MANUAL) 8 % (1-7); LYMPH#(MANUAL) 2.21 x10^3/uL (1-3.4); LYMPHS% (MANUAL) 32 % (22-44); MONOS#(MANUAL) 0.69 x10^3/uL (0.3-2.7); MONOS% (MANUAL) 10 % (2-9); NRBC % (MANUAL) 2 % (0-1); SEG#(MANUAL) 3.17 x10^3/uL (1.8-6.8); SEGS% (MANUAL) 46 % (42-75)
[2019-01-08 06:33] LABS: ANISOCYTOSIS 1+
[2019-01-08 06:34] LABS: <PLATELET ESTIMATE> DECREASED; <PLT MORPHOLOGY> NORMAL PLT MORPH; POLYCHROMASIA 1+
[2019-01-08 09:24] VITALS: BP 90/53
[2019-01-08] MEDS: LACTULOSE 10 GM/15 ML UDC PO SCH ×2 (09:37→21:00)
[2019-01-08 13:03] VITALS: BP 91/54
[2019-01-08] MEDS: GABAPENTIN 300 MG CAPSULE PO PRN (16:26)
[2019-01-08] MEDS: LORazepam 2 MG/ML, 1ML IV PRN (17:23)
[2019-01-08 19:21] VITALS: BP 99/61
[2019-01-08] MEDS: POTASSIUM CHLORIDE 20 MEQ, MAGNESIUM SULFATE 2 GM, THIAMINE 200 MG, MVI ADULT 10 ML, FO... IV SCH (19:46)
[2019-01-08 23:09] VITALS: BP 85/40
[2019-01-08] MEDS ORDERED: SODIUM CHLORIDE 0.9%, 500ML IVBOLUS ONE (23:30)
[2019-01-09 00:09] VITALS: BP 86/49
[2019-01-09 00:17] VITALS: BP 91/55
[2019-01-09 01:25] LABS: ALANINE AMINOTRANSFERASE 40 U/L (12-78); ALBUMIN 2.3 g/dL (3.4-5.0); ANION GAP 8 mmol/L (5-15); CALCIUM 7.3 mg/dL (8.5-10.1); CHLORIDE 113 mmol/L (98-107); CREATININE 1.68 mg/dL (0.55-1.02)
[2019-01-09 01:27] LABS: ALKALINE PHOSPHATASE 134 U/L (45-117); BILIRUBIN,TOTAL 7.6 mg/dL (0.2-1.0); TOTAL PROTEIN 5.7 g/dL (6.4-8.2)
[2019-01-09] MEDS ORDERED: SODIUM CHLORIDE 0.9%, 500ML IVBOLUS ONE (01:30)
[2019-01-09 01:31] VITALS: BP 74/36
[2019-01-09 01:45] LABS: MD YES; MEAN CORPUSCULAR HGB CONC 33.8 g/dL (32.4-35.8); MEAN CORPUSCULAR VOLUME 109.6 fL (80-100); MEAN PLATELET VOLUME 8.1 fL (7.4-10.4); RED BLOOD COUNT 2.06 x10^6/uL (3.82-5.3); RED CELL DISTRIBUTION WIDTH 17.1 % (9.6-15.2)
[2019-01-09 01:48] LABS: PLATELET COUNT 49 x10^3/uL (130-400)
[2019-01-09 01:52] LABS: BASOS#(MANUAL) 0.07 x10^3/uL (0-0.1); BASOS% (MANUAL) 1 % (0-1); EOS#(MANUAL) 0.36 x10^3/uL (0.0-0.4); EOS% (MANUAL) 5 % (1-7); LYMPH#(MANUAL) 2.27 x10^3/uL (1-3.4); LYMPHS% (MANUAL) 32 % (22-44); MONOS#(MANUAL) 0.92 x10^3/uL (0.3-2.7); MONOS% (MANUAL) 13 % (2-9); NRBC % (MANUAL) 1 % (0-1); SEG#(MANUAL) 3.48 x10^3/uL (1.8-6.8); SEGS% (MANUAL) 49 % (42-75)
[2019-01-09 01:53] LABS: <PLATELET ESTIMATE> DECREASED; <PLT MORPHOLOGY> NORMAL PLT MORPH; ANISOCYTOSIS 1+; POLYCHROMASIA 1+
[2019-01-09 02:21] VITALS: BP 93/58
[2019-01-09 07:08] LABS: AMPHETAMINE SCREEN, URINE Negative (Negative); BARBITURATE SCREEN, URINE Negative (Negative); BENZODIAZEPINE SCREEN, URINE Negative (Negative); CANNABINOID SCREEN, URINE Negative (Negative); COCAINE SCREEN, URINE Negative (Negative); METHADONE SCREEN, URINE Negative (Negative); OPIATE SCREEN, URINE Negative (Negative)
[2019-01-09 07:50] VITALS: BP 103/68
[2019-01-09] MEDS: LACTULOSE 10 GM/15 ML UDC PO SCH (08:32)
== END 2019-01-09 12:32 | disposition home or self-care (01) | DRG 92 ==
LOC: ED 17:41 → EDIP 20:01 → 5SO 01-06 08:58 → DCLOUNGE 01-09 12:17
PROVIDERS: ADMIT Internal Medicine; ATTEND Internal Medicine
DX: G92 Toxic encephalopathy (principal); D68.9 Coagulation defect, unspecified; I24.8 Other forms of acute ischemic heart disease; F10.239 Alcohol dependence with withdrawal, unspecified; K70.9 Alcoholic liver disease, unspecified; I10 Essential (primary) hypertension; D69.6 Thrombocytopenia, unspecified; D53.9 Nutritional anemia, unspecified; G89.11 Acute pain due to trauma; Y90.0 Blood alcohol level of less than 20 mg/100 ml; I45.81 Long QT syndrome; S50.11XA Contusion of right forearm, initial encounter; Z83.3 Family history of diabetes mellitus; Z80.9 Family history of malignant neoplasm, unspecified; Z91.14 Patient's other noncompliance with medication regimen
CPT/HCPCS: 36415; 83036; 99285; J7042; 70450; 71046; 78452; 80053; 80061; 80307; 81001; 82140; 83735; 84439; 84443; 84484; 85014; 85018; 85025; 85610; 86850; 86870; 86900; 86902; 86922; 86923; 87077; 87086; 87186; 93005; 93017; 93306; 96374; G0378; J2405; J2785; J3411; J3475; J3480; A9502; C9898; J2060; J7030; J7040